=== PATIENT | female | born 1995 | race Caucasian/White ===

== ENCOUNTER 2024-05-23 18:12 | Emergency (ER) | payer MEDICAID ==
[~2024-05-23] VITALS: Ht 160 cm; Wt 68.0 kg
[2024-05-23 18:21] VITALS: O2SAT 96
[2024-05-23] MEDS: KETOROLAC 15MG/ML VIAL IM ONE (20:07)
[2024-05-23] MEDS: ONDANSETRON 4MG ODT PO ONE (20:07)
[2024-05-23] MEDS ORDERED: NAPR-1176 MT (21:15)
[2024-05-23 21:24] VITALS: BP 131/81; PULSE 92; RESP 20; TEMP 98
== END 2024-05-23 21:23 | disposition home or self-care (01) ==
LOC: ER 18:12
DX: R10.9 Unspecified abdominal pain (principal)
CPT/HCPCS: 81025; 96372; 99283; Q0162; J1885; Z7610